=== PATIENT | female | born 1990 | race Hispanic/Latino ===

== ENCOUNTER 2019-06-29 21:19 | Emergency (ER) | payer OTHER ==
[~2019-06-29] VITALS: Ht 162.6 cm; Wt 120.2 kg
[2019-06-29] MEDS ORDERED: CEPHALEXIN500 MG PO (21:32)
[2019-06-29] MEDS ORDERED: OFLOXACIN5 ML OTIC (21:33)
== END 2019-06-29 22:45 | disposition home or self-care (01) ==
LOC: ED 21:19
DX: H60.93 Unspecified otitis externa, bilateral (principal)
CPT/HCPCS: 99283

== ENCOUNTER 2021-11-28 00:16 | Inpatient (IN) | payer OTHER, BC ==
[~2021-11-28] VITALS: Ht 162.6 cm; Wt 123.4 kg
[~2021-11-28 00:16] MED LIST: CEPHALEXIN500 MG PO; OFLOXACIN5 ML OTIC
--- NOTE | 2021-11-28 12:05 | PR ---
[facility] [address] [facility] [place], [place] [address] Signed Progress Notes IP Datetime Report Generated by SHANTEL: 11/28/2021 12:05 PROGRESS NOTES: [id number] Impression: Normal Progression of Labor Procedures: Artificial ROM; Sterile Vag Exam Plan: Continue Present Management VITAL SIGNS: [id number] Vital Signs: Reviewed VS Notable Details: HTN--not severe EXAM: [id number] Dilatation: 1.0 Effacement: 50 Station: -3 Contractions: irregular MEMBRANES: [id number] Comments: Getting a little more uncomfortable. Progressing. Sugars doing well so far. FETUS A: [id number] FHR Baseline: 135 Variability: Moderate 6-25bpm Accelerations: None Decelerations: None FHR Category: Category I Presentation: Vertex Comments on Fetus A: reassuring thus far FETUS B: [id number] Signing Physician: Zahira Marcial MD Copies: ~ *Electronically Signed* 11/28/21 1205 ZAHIRA MARCIAL MD PATIENT NAME: RICHARD PETERSON PROGRESS NOTE DATE OF : [birth year] PHYSICIAN: ZAHIRA MARCIAL MD RPT #: [id number] REPORT IS CONFIDENTIAL AND NOT TO BE RELEASED WITHOUT AUTHORIZATION
--- NOTE | 2021-11-28 17:49 | PR ---
[facility] [address] [facility] [place], [place] [address] Signed Progress Notes IP Datetime Report Generated by CPLizette: 11/28/2021 17:49 PROGRESS NOTES: [id number] Impression: Reassuring Heart Rate Procedures: Intrauterine Pressure Catheter; Scalp Electrode Plan: Augmentation VITAL SIGNS: [id number] Vital Signs: Reviewed VS Notable Details: HTN--not severe EXAM: [id number] Dilatation: 4.0 Effacement: 70 Station: -3 Contractions: irregular MEMBRANES: [id number] Comments: Slow progress. I believe contractions are inadequate. Will place IUPC and likely begin pit augment. FETUS A: [id number] FHR Baseline: 135 Variability: Moderate 6-25bpm Accelerations: None Decelerations: None FHR Category: Category I Presentation: Vertex Comments on Fetus A: reassuring thus far FETUS B: [id number] Signing Physician: Zahira Marcial MD Copies: ~ *Electronically Signed* 11/28/21 1749 ZAHIRA MARCIAL MD PATIENT NAME: RICHARD PETERSON PROGRESS NOTE DATE OF : [birth year] PHYSICIAN: ZAHIRA MARCIAL MD RPT #: [id number] REPORT IS CONFIDENTIAL AND NOT TO BE RELEASED WITHOUT AUTHORIZATION
--- NOTE | 2021-11-28 20:25 | PR ---
[facility] [address] [facility] [place], [place] [address] Signed Progress Notes IP Datetime Report Generated by CPLizette: 11/28/2021 20:24 PROGRESS NOTES: [id number] Impression: Normal Progression of Labor Procedures: Sterile Vag Exam Plan: Continue Present Management VITAL SIGNS: [id number] Vital Signs: Reviewed VS Notable Details: HTN--not severe EXAM: [id number] Dilatation: 5.5 Effacement: 95 Station: -2 Contractions: irregular MEMBRANES: [id number] Comments: Getting more comfortable. Progressing well. Will continue. FETUS A: [id number] FHR Baseline: 135 Variability: Moderate 6-25bpm Accelerations: None Decelerations: None FHR Category: Category I Presentation: Vertex Comments on Fetus A: reassuring thus far FETUS B: [id number] Signing Physician: Zahira Marcial MD Copies: ~ *Electronically Signed* 11/28/212023 ZAHIRA MARCIAL MD PATIENT NAME: RICHARD PETERSON ROSA PROGRESS NOTE DATE OF : [birth year] PHYSICIAN: ZAHIRA MARCIAL MD RPT #: [id number] REPORT IS CONFIDENTIAL AND NOT TO BE RELEASED WITHOUT AUTHORIZATION
--- NOTE | 2021-11-28 21:30 | PR ---
[facility] [address] [facility] [place], [place] [address] Signed Progress Notes IP Datetime Report Generated by CPN: 11/28/2021 21:30 PROGRESS NOTES: [id number] Impression: Normal Progression of Labor Procedures: Sterile Vag Exam Plan: Continue Present Management Other Plans: position changes VITAL SIGNS: [id number] Vital Signs: Reviewed VS Notable Details: HTN--not severe EXAM: [id number] Dilatation: 7.0 Effacement: 95 Station: -2 Contractions: irregular MEMBRANES: [id number] Comments: Comfortable. Progressing but station still quite high. Will continue with position changes. FETUS A: [id number] FHR Baseline: 135 Variability: Moderate 6-25bpm Accelerations: None Decelerations: None FHR Category: Category I Presentation: Vertex Comments on Fetus A: reassuring thus far FETUS B: [id number] Signing Physician: Zahira Marcial MD Copies: ~ *Electronically Signed* 11/28/212129 ZAHIRA MARCIAL MD PATIENT NAME: RICHARD PETERSON PROGRESS NOTE DATE OF : [birth year] PHYSICIAN: ZAHIRA MARCIAL MD RPT #: [id number] REPORT IS CONFIDENTIAL AND NOT TO BE RELEASED WITHOUT AUTHORIZATION
--- NOTE | 2021-11-30 08:50 | PR ---
[facility] [address] [facility] [place], [place] [address] Signed PP Progress Notes Datetime Report Generated by CPN: 11/30/2021 08:50 SUBJECTIVE: [id number] Pain: Within Normal Limits Pain Comments: sugars all within range Nausea/Vomiting: Denies Vital Signs: [id number] Vital Signs: Reviewed; Within Normal Limits Notable Details: BPs normal with appropriate cuff Cardiovascular: Not Done Respiratory: Not Done Abdomen/Uterus: Abnormal Lochia: Normal Vulva/Perineum: Not Done Breasts: Not Done CVA Tenderness: Not Done Extremities: Normal Incision: Not Applicable Progress: Normal Exam Comments: Fundus firm, NT @ U-1. H/H 11/33.7, WBC 14, plat 295k IMPRESSION/PLAN/PROCEDURES: [id number] Impression: Normal Progression Other Impression: Type 2 DM well controlled Plan: Discharge Progress Notes: Doing well. She desires discharge. Signing Physician: Zahira Marcial MD Copies: ~ *Electronically Signed* 11/30/21 0850 ZAHIRA MARCIAL MD PATIENT NAME: RICHARD PETERSON PROGRESS NOTE DATE OF : [birth year] PHYSICIAN: ZAHIRA MARCIAL MD RPT #: [id number] REPORT IS CONFIDENTIAL AND NOT TO BE RELEASED WITHOUT AUTHORIZATION
== END 2021-11-30 11:35 | disposition home or self-care (01) | DRG 807 ==
LOC: FBC 00:16
PROVIDERS: ADMIT Obstetrics & Gynecology; ATTEND Obstetrics & Gynecology
PROC: 10E0XZZ Delivery of Products of Conception, External Approach (ICD-10-PCS; principal; 2021-11-29)
PROC: 10907ZC Drainage of Amniotic Fluid, Therapeutic from Products of Conception, Via Natural or Artificial Opening (ICD-10-PCS; 2021-11-29)
PROC: 10H07YZ Insertion of Other Device into Products of Conception, Via Natural or Artificial Opening (ICD-10-PCS; 2021-11-29)
PROC: 3E0R3BZ Introduction of Anesthetic Agent into Spinal Canal, Percutaneous Approach (ICD-10-PCS; 2021-11-29)
PROC: 00HU33Z Insertion of Infusion Device into Spinal Canal, Percutaneous Approach (ICD-10-PCS; 2021-11-29)
PROC: 0HQ9XZZ Repair Perineum Skin, External Approach (ICD-10-PCS; 2021-11-29)
DX: O24.12 Pre-existing type 2 diabetes mellitus, in childbirth (principal); Z37.0 Single live birth; O99.214 Obesity complicating childbirth; E66.01 Morbid (severe) obesity due to excess calories; E11.65 Type 2 diabetes mellitus with hyperglycemia; O14.94 Unspecified pre-eclampsia, complicating childbirth; O76 Abnormality in fetal heart rate and rhythm complicating labor and delivery; O70.0 First degree perineal laceration during delivery; Z91.013 Allergy to seafood; Z3A.39 39 weeks gestation of pregnancy; Z79.899 Other long term (current) drug therapy; Z79.4 Long term (current) use of insulin
CPT/HCPCS: 36415; 82565; 82570; 84156; 84450; 84520; 84550; 85027; 86850; 86900; 86901; A9270; J1644; J1815; J2001; J2405; J2590; J2795; J7121

== ENCOUNTER 2024-10-10 05:30 | Inpatient (IN) | payer BC ==
[~2024-10-10] VITALS: Ht 160 cm; Wt 130.2 kg
[~2024-10-10 05:30] MED LIST changes: +CALCIUM CARBONATE 500 MG CHEW PO PRN; +LACTATED RINGER'S 1,000 ML IV PRN; +LACTATED RINGER'S 1,000 ML IV SCH; +MAGNESIUM HYDROXIDE/AL HYDROX 30 ML CUP PO PRN; +OXYTOCIN/0.9 % SODIUM CHLORIDE 500 ML IV SCH; +miSOPROStoL 25 MCG TAB BUCCAL ONE
[2024-10-10 09:36] VITALS: BP 140/91
[2024-10-10 10:13] LABS: HEMATOCRIT 33.1 % (34.1-44.9); HEMOGLOBIN 10.8 g/dL (11.2-15.7); MCHC 32.6 g/dL (32.2-35.5); RBC 3.72 M/uL (3.93-5.22)
[2024-10-10] MEDS ORDERED: miSOPROStoL 25 MCG TAB PV ONE (10:15)
[2024-10-10] MEDS ORDERED: MAGNESIUM HYDROXIDE/AL HYDROX 30 ML CUP PO PRN (10:15)
[2024-10-10] MEDS ORDERED: LACTATED RINGER'S 1,000 ML IV PRN (10:15)
[2024-10-10] MEDS ORDERED: CALCIUM CARBONATE 500 MG CHEW PO PRN (10:15)
[2024-10-10 10:27] LABS: ALBUMIN 2.3 g/dL (3.4-5.0); ALBUMIN/GLOBULIN RATIO 0.59 (1.1-2.4); ANION GAP 14.2 (7-21); BILIRUBIN, TOTAL 0.3 mg/dL (0.2-1.0); BUN/CREATININE RATIO 30.5 (6.0-28.6); CALCIUM 8.8 mg/dL (8.5-10.1); CREATININE, SERUM 0.59 mg/dL (0.55-1.02); POTASSIUM 4.2 mmol/L (3.5-5.1); PROTEIN, TOTAL 6.2 g/dL (6.4-8.2)
[2024-10-10] MEDS ORDERED: OXYTOCIN/0.9 % SODIUM CHLORIDE 500 ML IV SCH ×2 (10:30→21:30)
[2024-10-10 10:31] LABS: BARBITURATES, URINE NEGATIVE (NEGATIVE)
[2024-10-10 10:34] LABS: CREATININE, RANDOM URINE 212.31 mg/dL (NOT ESTABLISHED); PROTEIN/CREATININE RATIO 0.56 mg/mg (0.010-0.107)
[2024-10-10 10:36] LABS: AMPHETAMINES, URINE NEGATIVE (NEGATIVE); BENZODIAZEPINE, URINE NEGATIVE (NEGATIVE); BUPRENORPHINE, URINE NEGATIVE (NEGATIVE); CANNABINOID, URINE NEGATIVE (NEGATIVE); COCAINE, URINE NEGATIVE (NEGATIVE); ECSTASY, URINE NEGATIVE (NEGATIVE); FENTANYL, URINE NEGATIVE (NEGATIVE); METHADONE, URINE NEGATIVE (NEGATIVE); OPIATES, URINE NEGATIVE (NEGATIVE); OXYCODONE, URINE NEGATIVE (NEGATIVE); PHENCYCLIDINE, URINE NEGATIVE (NEGATIVE)
[2024-10-10 10:49] LABS: ABO O; ANTIBODY SCREEN NEGATIVE; RH POSITIVE
[2024-10-10 13:04] LABS: IS CROSSMATCH COMPATIBLE
[2024-10-10] MEDS ORDERED: miSOPROStoL 25 MCG TAB BUCCAL SCH (14:30)
[2024-10-10] MEDS ORDERED: CALCIUM GLUCONATE 1,000 MG/10 ML VIAL IV PRN ×2 (16:15→21:30)
[2024-10-10] MEDS ORDERED: LACTATED RINGER'S 1,000 ML IV SCH ×2 (16:15→21:26)
[2024-10-10] MEDS ORDERED: MAGNESIUM SULFATE 500 ML IV SCH ×2 (16:15→21:30)
[2024-10-10] MEDS ORDERED: LABETALOL HCL 100 MG/20 ML MDV IV PRN ×3 (16:30)
[2024-10-10] MEDS ORDERED: LABETALOL HCL 200 MG TAB PO SCH (18:15)
[2024-10-10] MEDS ORDERED: LABETALOL HCL 100 MG/20 ML MDV IV ONE (18:15)
[2024-10-10] MEDS ORDERED: CEFAZOLIN SODIUM 3 GM/30 ML SYR IV SCH (19:18)
[2024-10-10] MEDS ORDERED: TRANEXAMIC ACID IN NACL,ISO-OS 100 ML IV ONE (19:21)
[2024-10-10] MEDS ORDERED: AZITHROMYCIN 500 MG in DEXTROSE 5% 250 ML IV ONE (19:30)
[2024-10-10] MEDS ORDERED: SOD+POT BICARB/CITRIC ACID 2 EA TABLET.EFF PO ONE (19:30)
[2024-10-10] MEDS ORDERED: ondansetron HCL 4 MG/2 ML VIAL ONE (19:39)
[2024-10-10] MEDS ORDERED: BUPIVACAINE 0.75% IN DEXTROSE 2 ML AMP ONE (19:43)
[2024-10-10] MEDS ORDERED: MORPHINE SULFATE 1 MG/ML VIAL ONE (19:43)
[2024-10-10] MEDS ORDERED: DEXAMETHASONE SOD PHOS 4 MG/ML VIAL ONE ×2 (19:43→20:33)
[2024-10-10] MEDS ORDERED: OXYTOCIN 10 UNITS/ML VIAL ONE (19:43)
[2024-10-10] MEDS ORDERED: PHENYLEPHRINE HCL 10 MG/ML VIAL ONE (19:43)
[2024-10-10] MEDS ORDERED: KETOROLAC TROMETHAMINE 30 MG/ML VIAL ONE (19:43)
[2024-10-10] MEDS ORDERED: LIDOCAINE HCL 2% 5 ML SDV ONE (19:43)
[2024-10-10] MEDS ORDERED: dexmedeTOMIDine HCl 200 MCG/2 ML VIAL ONE (19:44)
[2024-10-10] MEDS ORDERED: SODIUM CHLORIDE 0.9% 20 ML IV ONE ×2 (19:46→20:41)
[2024-10-10] MEDS ORDERED: ePHEDrine sulfate 50 MG/ML AMP ONE ×2 (19:48→20:38)
[2024-10-10] MEDS ORDERED: SODIUM CHLORIDE 0.9% 60 ML IV ONE (20:33)
[2024-10-10] MEDS ORDERED: Ropivacaine HCl 0.5% 30 ML VIAL ONE (20:33)
[2024-10-10] MEDS ORDERED: droPERidol 5 MG/2 ML VIAL ONE (20:51)
[2024-10-10] MEDS ORDERED: OXYCODONE HCL 5 MG TAB PO PRN (21:30)
[2024-10-10] MEDS ORDERED: HYDROCODONE/ACETA 5/325 TAB PO PRN (21:30)
[2024-10-10] MEDS ORDERED: PROCHLORPERAZINE EDISYLATE 10 MG/2 ML VIAL IV PRN (21:30)
[2024-10-10] MEDS ORDERED: PROMETHAZINE HCL 25 MG SUPP PR PRN (21:30)
[2024-10-10] MEDS ORDERED: METOCLOPRAMIDE HCL 10 MG/2 ML SDV IV PRN (21:30)
[2024-10-10] MEDS ORDERED: ondansetron HCL 4 MG/2 ML VIAL IV PRN ×3 (21:30→22:00)
[2024-10-10] MEDS ORDERED: bisacodyL 10 MG SUPP PR PRN (21:30)
[2024-10-10] MEDS ORDERED: PROMETHAZINE HCL 25 MG TAB PO PRN (21:30)
[2024-10-10] MEDS ORDERED: LACTATED RINGER'S 1,000 ML IV ONE (21:30)
[2024-10-10] MEDS ORDERED: CEFAZOLIN SODIUM 2 GM/20 ML SYR IV ONE (21:45)
[2024-10-10] MEDS ORDERED: HYDROmorphone HCL 1 MG/ML SYR IV PRN (22:00)
[2024-10-10] MEDS ORDERED: IBLOOD GLUCOSE TEST STRIP 1 EA TEST VI PRN (22:00)
[2024-10-10] MEDS ORDERED: IBUPROFEN 600 MG TAB PO SCH (22:00)
[2024-10-10] MEDS ORDERED: MORPHINE SULFATE 4 MG/ML VIAL IV PRN (22:00)
[2024-10-10] MEDS ORDERED: NALOXONE HCL 0.4 MG SYR IV PRN ×2 (22:00)
[2024-10-10] MEDS ORDERED: diphenhydrAMINE HCL 50 MG/ML VIAL IV PRN ×2 (22:00)
[2024-10-10] MEDS ORDERED: fentaNYL citrate 50 MCG/ML SDV IV PRN (22:00)
[2024-10-10] MEDS ORDERED: miSOPROStoL 200 MCG TAB PV ONE (22:01)
--- NOTE | 2024-10-10 22:31 | NUR ---
10/10/24 223 Talia Lock 4-PT ARRIVES TO ROOM 102. PT IS DROWSY AND FALLS ASLEEP EASILY. 2L VIA NC, O2 SATS AT 100%. RESP EVEN AND UNLABORED. PT DENIES PAIN AND NAUSEA. IV SITE IN R FOREARM WNL. IV SITE IN L FOREARM WNL. FAMILY IN ROOM. BED PLUGGED IN AND BED RAILS UP. 2144-PT ASLEEP AND AWAKES EASILY WITH VERBAL STIMULI AND ANSWERS QUESTIONS. DENIES PAIN AND NAUSEA. HOB ELEVATED. 2152-PT OPENS EYES WITH VERBAL STIMULI AND ANSWERS QUESTIONS. RESP EVEN AND UNLABORED. O2 SATS IN HIGH 90'S ON 2L VIA NC. FAMILY IN ROOM HOLDING BABY. 2204-REPORT GIVEN TO [facility] RN. NO OTHER NEEDS AT THIS TIME. FAMILY IN ROOM HOLDING BABY.
[2024-10-11] MEDS ORDERED: ACETAMINOPHEN 325 MG TAB PO SCH (02:00)
[2024-10-11] MEDS ORDERED: CEFAZOLIN SODIUM 2 GM/20 ML SYR IV ONE (05:00)
[2024-10-11 05:24] LABS: HEMATOCRIT 35.1 % (34.1-44.9); HEMOGLOBIN 11.6 g/dL (11.2-15.7); MCH 29.1 PG (25.6-32.2); MCV 88.2 fL (79.4-94.8); RBC 3.98 M/uL (3.93-5.22)
[2024-10-11] MEDS ORDERED: INSULIN LISPRO 100 UNIT/ML ML SUB-Q SCH ×3 (07:00→21:00)
[2024-10-11] MEDS ORDERED: SIMETHICONE 80 MG CHEW PO SCH (07:00)
[2024-10-11 07:49] LABS: INR 1.02 (0.80-1.30)
[2024-10-11 07:51] LABS: PARTIAL THROMBOPLASTIN TIME 30.7 Sec (22.9-41.3)
[2024-10-11] MEDS ORDERED: LABETALOL HCL 200 MG TAB PO SCH ×2 (09:00)
[2024-10-11] MEDS ORDERED: SENNOSIDES/DOCUSATE 1 EA TAB PO SCH (09:00)
[2024-10-11] MEDS ORDERED: Insulin Regular, Human 100 UNIT/ML ML SUB-Q ONE ×3 (09:30→19:00)
--- NOTE | 2024-10-11 10:16 | OR ---
[address] [address] Signed DATE OF OPERATION: 10/10/2024 SURGEON: Nataly Dumont MD PREOPERATIVE DIAGNOSES: 1. Intrauterine at 39 and 2/7th weeks. 2. Type 2 diabetes mellitus. 3. Preeclampsia with severe features. 4. Extreme obesity. 5. Breech presentation. 6. Desires sterilization for ovarian cancer risk reduction. POSTOPERATIVE DIAGNOSES: 1. Intrauterine at 39 and 2/7th weeks. 2. Type 2 diabetes mellitus. 3. Preeclampsia with severe features. 4. Extreme obesity. 5. Breech presentation. 6. Desires sterilization for ovarian cancer risk reduction. PROCEDURES: Primary low transverse section, bilateral salpingectomy. FINDINGS: A viable male , Apgars of 7 and 8. Weight of 10 pounds 5 ounces. Normal uterus, ovaries, and fallopian tubes. ANESTHESIA: Spinal. STONE SANDBLASTER: None. IV FLUIDS: 700 mL crystalloid. QBL: 1000 mL. URINE OUTPUT: Electronically Signed By: NATALY DUMONT MD 10/11/24 1016 PATIENT NAME: RICHARD PETERSON OPERATIVE REPORT DATE OF : 88 REPORT #: [id number] PHYSICIAN: NATALY DUMONT MD PCP: NO PRIMARY CARE PHYSICIAN REPORT IS CONFIDENTIAL AND NOT TO BE RELEASED WITHOUT AUTHORIZATION [address] [address] Signed 300 mL of clear urine. DRAINS: [place] to gravity. SPECIMENS: Left and right fallopian tube segments. COUNTS: Correct x2. COMPLICATIONS: None apparent. TECHNIQUE IN DETAIL: With informed consent, the patient was taken to the operating room, where a spinal anesthetic was placed. She was given 3 g of Ancef intravenously per protocol as well as 500 mg of azithromycin. Her lower extremities were placed in SCD pneumatic compression type devices. She was prepped and draped in sterile fashion including a vaginal prep. A time-out was performed per protocol. Under adequate spinal anesthetic, an approximately 10-inch Pfannenstiel skin incision was made. Sharp dissection was carried down to the layer of the rectus fascia which was nicked in the midline. The rectus incision was enlarged with sharp dissection both to the left and right. The rectus muscles were taken down from the fascia using combination of sharp and blunt dissection both superiorly and inferiorly. The rectus muscles were in the midline at the most superior aspect and the separation was carried out inferiorly using sharp dissection. The peritoneum was entered sharply ensuring no vital structures below. The peritoneal opening was then enlarged using the electrocautery device. Blunt dissection was performed to enlarge the incision. A bladder blade was placed. Using a scalpel, low transverse uterine incision was made down to the superficial layers of the myometrium. Remainder of the myometrium and endometrium were punctured using the surgeon's finger. The hysterotomy site was enlarged using blunt dissection in a superior to inferior direction. The surgeon's hand was placed into the lower uterine segment. The sacrum was grasped and pushed up superiorly and then delivered with gentle traction. Fundal pressure was also applied. At the level of the upper extremities, each upper extremity was delivered individually and the head was delivered in a flexed position. The baby's cord was clamped x2 and cut and handed to the respiratory and transition team for the baby. The placenta delivered intact with a 3-vessel cord using gentle traction and fundal Electronically Signed By: NATALY DUMONT MD 10/11/24 1016 PATIENT NAME: RICHARD PETERSON OPERATIVE REPORT DATE OF : 88 REPORT #: [id number] PHYSICIAN: NATALY DUMONT MD PCP: NO PRIMARY CARE PHYSICIAN REPORT IS CONFIDENTIAL AND NOT TO BE RELEASED WITHOUT AUTHORIZATION [facility] [address] [place], [place] [address] Signed massage. Intravenous oxytocin was given immediately. There was good uterine tone with massage and intravenous oxytocin. The uterus was externalized and the uterine cavity was curetted with laparotomy sponges. The hysterotomy site was closed with 0 Monocryl in a running locked fashion. A 2nd imbricating layer using 0 Monocryl was also placed in a running fashion. Good hemostasis was achieved. Posterior cul-de-sac was cleared of all blood clot. The adnexa were examined with the above-mentioned findings. The uterine incision was again inspected and again noted to be hemostatic. Attention was then turned to the fallopian tubes. The left fallopian tube was identified and followed to its fimbriated end. It was elevated in 2 spots with Leanne clamps. Using the handheld LigaSure device, the majority of the left fallopian tube was cauterized, cut and removed. Vessels in the mesosalpinx were cauterized in 2 points before cutting. The same procedure was carried out on the right fallopian tube. Good hemostasis of both the left and right fallopian tube areas were noted. Uterine incision was again inspected and again noted to be hemostatic. At this point, the uterus was carefully returned to the pelvis. The left and right pericolic gutters were cleared of all blood and clot with moist laparotomy sponges. The uterine incision was inspected one final time and found to be hemostatic. The rectus muscles and peritoneum were reapproximated using 2-0 chromic in a running fashion. The rectus muscle bellies were inspected and found to be hemostatic. The rectus fascia was closed using 0 PDS in a running fashion. Superficial incision was irrigated. The subcutaneous tissue was rendered hemostatic with electrocautery device. The subcutaneous layer was reapproximated with 2-0 chromic in a running fashion. The skin was closed with the Insorb stapler device. Steri-Strips were placed and the bandage was placed over the Steri-Strips. The patient was also given 800 mcg of misoprostol rectally in the operating room. The uterus was then expressed of all clot. DISPOSITION: The patient was taken to the recovery room in stable condition. Nataly Dumont MD BB/MODL /[id number] Electronically Signed By: NATALY DUMONT MD 10/11/24 1016 PATIENT NAME: RICHARD PETERSON OPERATIVE REPORT DATE OF : 88 REPORT #: [id number] PHYSICIAN: NATALY DUMONT MD PCP: NO PRIMARY CARE PHYSICIAN REPORT IS CONFIDENTIAL AND NOT TO BE RELEASED WITHOUT AUTHORIZATION [facility] [address] [facility] [place], [place] [address] Signed Copies: ~ Electronically Signed By: NATALY DUMONT MD 10/11/24 1016 PATIENT NAME: RICHARD PETERSON OPERATIVE REPORT DATE OF : [birth year] REPORT #: [id number] PHYSICIAN: NATALY DUMONT MD PCP: NO PRIMARY CARE PHYSICIAN REPORT IS CONFIDENTIAL AND NOT TO BE RELEASED WITHOUT AUTHORIZATION
[2024-10-11] MEDS ORDERED: IBLOOD GLUCOSE TEST STRIP 1 EA TEST VI SCH ×2 (11:00→13:00)
[2024-10-11] MEDS ORDERED: ENOXAPARIN SODIUM 40 MG/0.4 ML SYR SUB-Q SCH (12:00)
[2024-10-11] MEDS ORDERED: MAGNESIUM SULFATE 500 ML IV ONE (12:02)
[2024-10-11] MEDS ORDERED: INSULIN NPH HUMAN ISOPHANE 100 UNIT/ML ML SUB-Q SCH (21:00)
[2024-10-12] MEDS ORDERED: INSULIN NPH HUMAN ISOPHANE 100 UNIT/ML ML SUB-Q SCH (06:00)
[2024-10-12] MEDS ORDERED: INSULIN NPH HUM/REG INSULIN HM 100 UNIT/ML ML SUB-Q SCH (06:00)
[2024-10-12] MEDS ORDERED: CALCIUM GLUCONATE 1,000 MG/10 ML VIAL IV PRN (08:15)
[2024-10-12] MEDS ORDERED: MAGNESIUM SULFATE 500 ML IV SCH (08:15)
--- NOTE | 2024-10-13 09:03 | PR ---
[facility] [address] [facility] [place], [place] [address] Signed PP Progress Notes Datetime Report Generated by SHANTEL: 10/13/2024 09:03 SUBJECTIVE: [id number] Pain: Within Normal Limits Nausea/Vomiting: Denies Flatus: Yes Vital Signs: [id number] Vital Signs: Reviewed; Within Normal Limits EXAM: Ongoing Cardiovascular: Normal Respiratory: Normal Abdomen/Uterus: Normal Lochia: Normal Vulva/Perineum: Not Done Breasts: Normal CVA Tenderness: Not Done Extremities: Normal Incision: Normal IMPRESSION/PLAN/PROCEDURES: [id number] Impression: Normal Progression; Induced Hypertension Plan: Continue Present Management; Discharge Procedures: None Progress Notes: PAtient doing well today. Desires D/C home. Will continue BP medication at current dose with BP follow up. Will return to pre- insulin dosage. Ambulating. PAin well controlled. Signing Physician: Camila Browne MD Copies: ~ *Electronically Signed* 10/13/24 09 CAMILA BROWNE MD PATIENT NAME: RICHARD PETERSON PROGRESS NOTE DATE OF : 88 PHYSICIAN: CAMILA BROWNE MD RPT #: [id number] REPORT IS CONFIDENTIAL AND NOT TO BE RELEASED WITHOUT AUTHORIZATION
[2024-10-13 09:04] VITALS: BP 174/82
--- NOTE | 2024-10-13 14:09 | PATH ---
[facility] [address] [place], [place] [address] Signed SPECIMEN(S): A FALLOPIAN TUBES, BILATERAL SPECIMEN SOURCE: A. FALLOPIAN TUBES, BILATERAL CLINICAL HISTORY: Desires sterilization FINAL PATHOLOGIC DIAGNOSIS: Bilateral fallopian tubes, sterilization: - Both tubes are completely transected and contain the fimbriated ends. DWS:chanel MICROSCOPIC EXAMINATION: Histologic sections of all submitted blocks are examined by light microscopy. These findings, together with the gross examination, support the pathologic diagnosis. GROSS DESCRIPTION: The specimen, labeled and designated "Rosalva De La Rosa., portion of right and left fallopian tubes," is received in formalin and consists of 2 violaceous fallopian tubes with undesignated laterality. The first arbitrarily designated fallopian tube measures 9.4 x 0.8 x 0.7 cm and has an attached fimbriated end. The serosal surface is smooth with multiple pinpoint paratubal cyst. The second arbitrarily designated fallopian tube measures 9.8 x 0.9 x 0.8 cm and has an attached fimbriated end. The surface is smooth with multiple pinpoint paratubal cysts. The specimens are serially sectioned revealing a pinpoint lumen. Aws Consultant sections are submitted as follows: Cassette Summary: (A1) first fallopian tube, fimbriated end totally embedded (A2) second fallopian tube, fimbriated end totally embedded AA (under the direct supervision of a pathologist) The Gross Description was prepared using a voice recognition system. The report was reviewed for accuracy; however, sound-alike word errors, addition and/or deletions may occur. If there is any question about this report, please contact Client Services. PERFORMING LABORATORY: PATIENT NAME: RICHARD DE LA ROSA PATHOLOGY DATE OF : 88 REPORT #: [id number] PHYSICIAN: JEVON PATHOLOGY PCP: NO PRIMARY CARE PHYSICIAN REPORT IS CONFIDENTIAL AND NOT TO BE RELEASED WITHOUT AUTHORIZATION [facility] [address] [facility] [place], [place] [address] Signed Technical component was performed by [facility], [address] [place] [id number] (CLIA# [id number]). Professional interpretation was performed by [facility], [address] [place] [id number] (CLIA#: [id number]). Diagnostician: Brad Tierney MD Pathologist Electronically Signed 10/13/2024 Copies: ~ PATIENT NAME: RICHARD DE LA ROSA PATHOLOGY DATE OF : [birth year] REPORT #: [id number] PHYSICIAN: JEVON PATHOLOGY PCP: NO PRIMARY CARE PHYSICIAN REPORT IS CONFIDENTIAL AND NOT TO BE RELEASED WITHOUT AUTHORIZATION
== END 2024-10-13 11:50 | disposition home or self-care (01) | DRG 785 ==
LOC: EDSTATUS 05:30 → FBCO 08:22 → FBC 08:55
PROVIDERS: ADMIT Obstetrics & Gynecology; ATTEND Obstetrics & Gynecology
PROC: 10D00Z1 Extraction of Products of Conception, Low, Open Approach (ICD-10-PCS; principal; 2024-10-11)
PROC: 0UT70ZZ Resection of Bilateral Fallopian Tubes, Open Approach (ICD-10-PCS; 2024-10-11)
DX: O24.429 Gestational diabetes mellitus in childbirth, unspecified control (principal); O32.1XX0 Maternal care for breech presentation, not applicable or unspecified; O14.14 Severe pre-eclampsia complicating childbirth; O99.214 Obesity complicating childbirth; Z37.0 Single live birth; Z3A.39 39 weeks gestation of pregnancy; Z30.2 Encounter for sterilization; E66.01 Morbid (severe) obesity due to excess calories; Z91.013 Allergy to seafood; Z79.82 Long term (current) use of aspirin; Z79.4 Long term (current) use of insulin
CPT/HCPCS: 01961; 36415; 80053; 80307; 82565; 82570; 83615; 83735; 84156; 84550; 85027; 85384; 85610; 85730; 86850; 86900; 86901; 86922; A9270; J0456; J0690; J1100; J1650; J1790; J1815; J1885; J2003; J2274; J2371; J2405; J2590; J2795; J3475; J7060; J7121